=== PATIENT | male | born 1975 | race Caucasian/White ===

== ENCOUNTER 2018-11-29 12:12 | Emergency (ER) | payer OTHER ==
[2018-11-29 12:31] VITALS: BP 130/88; PULSE 98; RESP 18; TEMP 98.5
[2018-11-29] MEDS ORDERED: PENICILLIN VK 500MG STARTER 4 TAB BTL PO STA (12:52)
--- NOTE | 2018-11-29 12:52 | ED ---
General Adult HPI - General Chief complaint: Dental/Oral Stated complaint: Tooth pain Time Seen by Provider: 11/29/18 12:38 Source: patient, RN notes reviewed Mode of arrival: ambulatory Limitations: no limitations - History of Present Illness Initial comments: 43-year-old male presents to the emergency department for chief complaint of dental pain. Patient has had pain for the past few days on the left lower mouth. States it is somewhat swollen. Denies any difficulty opening his mouth or swallowing. States &r cold causes pain. States he fractured this tooth about a year ago and believes that is now infected. Patient does not have a dentist.Patient has no other complaints at this time including shortness of breath, chest pain, abdominal pain, nausea or vomiting, headache, or visual changes. - Related Data Home Medications Medication Instructions Recorded Confirmed ALPRAZolam 1 mg PO TID PRN 06/06/15 06/06/15 HYDROcodone/APAP 10-325MG [[place] 1 tab PO DAILY PRN 06/06/15 06/06/15 10-325] Previous Rx's Medication Instructions Recorded Tobramycin 0.3% Ophth Oint [Tobrex 1 applic BOTH EYES TID #1 bottle 06/06/15 0.3% Ophth Oint] Penicillin V Potassium [Pen Vee K] 500 mg PO Q6H 10 Days #40 tablet 11/29/18 Allergies Allergy/AdvReac Type Severity Reaction Status Date / Time No Known Allergies Allergy Verified 06/06/15 21:52 Review of Systems ROS Statement: Those systems with pertinent positive or pertinent negative responses have been documented in the HPI. ROS Other: All systems not noted in ROS Statement are negative. Past Medical History Past Medical History: No Reported History History of Any Multi-Drug Resistant Organisms: None Reported Past Surgical History: Orthopedic Surgery Past Psychological History: No Psychological Hx Reported Smoking Status: Never smoker Past Alcohol Use History: Occasional Past Drug Use History: None Reported General Exam Limitations: no limitations General appearance: alert, in no apparent distress Head exam: Present: atraumatic, normocephalic, normal inspection Eye exam: Present: normal appearance, PERRL, EOMI. Absent: scleral icterus, conjunctival injection, periorbital swelling ENT exam: Present: normal exam, mucous membranes moist. Absent: normal oropharynx (Tooth 19 is cracked and tender to palpation with tongue blade. No abscess noted.) Neck exam: Present: normal inspection, full ROM. Absent: tenderness, meningismus, lymphadenopathy Respiratory exam: Present: normal lung sounds bilaterally. Absent: respiratory distress, wheezes, rales, rhonchi, stridor Cardiovascular Exam: Present: regular rate, normal rhythm, normal heart sounds. Absent: systolic murmur, diastolic murmur, rubs, gallop, clicks Neurological exam: Present: alert, oriented X3, CN II-XII intact Psychiatric exam: Present: normal affect, normal mood Course Vital Signs 11/29/18 12:28 Temperature 98.5 F Pulse Rate 98 Respiratory 18 Rate Blood Pressure 130/88 O2 Sat by Pulse 99 Oximetry Medical Decision Making - Medical Decision Making 43-year-old male presents to the emergency department for a chief complaint of dental pain times a few days. Patient cracked his tooth about a year ago and believes it is now infected. On exam there is minimal edema noted of the left lower jaw. No pain with opening the jaw. Tenderness noted to tooth 19 which appears cracked. No dental abscess with palpation or visualization of the gumline. Patient will be given penicillin. Recommended follow-up with dentist. Recommended returning if he has any worsening symptoms. Disposition Clinical Impression: Toothache Disposition: HOME SELF-CARE Condition: Good Instructions (If sedation given, give patient instructions): Dental Caries (ED) Additional Instructions: Please follow up with primary care in 1-2 days. Follow-up with dentist as well. Take antibiotics as directed. Please return to the emergency department if you have any worsening symptoms. [facility] Address: [address] [place] [address] Phone: Prescriptions: Penicillin V Potassium [Pen Vee K] 500 mg PO Q6H 10 Days #40 tablet Is patient prescribed a controlled substance at d/c from ED?: No Referrals: Renee Patel MD [STAFF PHYSICIAN] - 1-2 days Time of Disposition: 12:51
== END 2018-11-29 13:26 | disposition home or self-care (01) ==
LOC: EC 12:12
DX: K08.89 Other specified disorders of teeth and supporting structures (principal); K03.81 Cracked tooth
CPT/HCPCS: 99282

== ENCOUNTER 2019-11-08 14:40 | Emergency (ER) | payer OTHER ==
[2019-11-08 14:48] VITALS: BP 153/88; PULSE 95; RESP 18; TEMP 98.2
[2019-11-08] MEDS ORDERED: LIDOCAINE 5% PATCH TOPICAL STA (15:15)
[2019-11-08] MEDS ORDERED: CYCLOBENZAPRINE 10 MG TAB PO STA (15:18)
--- NOTE | 2019-11-08 15:19 | ED ---
Back Pain HPI - General Chief Complaint: Back Pain/Injury Stated Complaint: Back Injury Time Seen by Provider: 11/08/19 14:49 Source: patient Limitations: no limitations - History of Present Illness Initial Comments: Patient is a 44-year-old male presenting to the emergency department with a chief complaint of back pain. Patient reports yesterday he was cutting down trees and was calling them under his right arm Near the right hip/back region. Patient reports left-sided developed pain in the right lower back region. States he woke up this morning and noticed pain that is radiating from the right hip down to the popliteal region. Does report history of disc herniation. Denies any direct trauma to the back. Forsaken [id number] analgesics with some improvement in symptoms. States the pain is exacerbated with ambulation and weightbearing. Denies any saddle anesthesia, urinary or bowel incontinence. also reports a tingling sensation in the right inner thigh. - Related Data Home Medications Medication Instructions Recorded Confirmed ALPRAZolam 1 mg PO TID PRN 06/06/15 06/06/15 HYDROcodone/APAP 10-325MG [[place] 1 tab PO DAILY PRN 06/06/15 06/06/15 10-325] Previous Rx's Medication Instructions Recorded Tobramycin 0.3% Ophth Oint [Tobrex 1 applic BOTH EYES TID #1 bottle 06/06/15 0.3% Ophth Oint] Penicillin V Potassium [Pen Vee K] 500 mg PO Q6H 10 Days #40 tablet 11/29/18 Cyclobenzaprine [Flexeril] 10 mg PO TID PRN #15 tab 11/08/19 Allergies Allergy/AdvReac Type Severity Reaction Status Date / Time No Known Allergies Allergy Verified 11/08/19 14:43 Review of Systems ROS Statement: Those systems with pertinent positive or pertinent negative responses have been documented in the HPI. ROS Other: All systems not noted in ROS Statement are negative. Past Medical History Past Medical History: No Reported History History of Any Multi-Drug Resistant Organisms: None Reported Past Surgical History: Orthopedic Surgery Additional Past Surgical History / Comment(s): R leg Past Psychological History: No Psychological Hx Reported Smoking Status: Never smoker Past Alcohol Use History: Occasional Past Drug Use History: None Reported General Exam Limitations: no limitations General appearance: alert, in no apparent distress Head exam: Present: atraumatic, normocephalic, normal inspection Eye exam: Present: normal appearance, PERRL, EOMI Pupils: Present: normal accommodation ENT exam: Present: normal exam, normal oropharynx, mucous membranes moist. Absent: TM's normal bilaterally Neck exam: Present: normal inspection, full ROM. Absent: tenderness Respiratory exam: Present: normal lung sounds bilaterally. Absent: respiratory distress, wheezes Cardiovascular Exam: Present: regular rate, normal rhythm, normal heart sounds Extremities exam: Present: normal inspection, full ROM (Full range of motion of the right hip.), normal capillary refill, other (+2 ulnar and radial pulses bilaterally. +2 dorsalis pedis and posterior tibialis bilaterally. Patient has sensation in the medial aspect of the right thigh, as well as throughout the whole right lower extremity). Absent: tenderness (No tenderness along the region of the right hip. No tenderness along the right thigh.), pedal edema, calf tenderness Back exam: Present: normal inspection, full ROM, tenderness, paraspinal tenderness (Focal tenderness in the right paraspinal region.). Absent: CVA tenderness (R), CVA tenderness (L), muscle spasm, vertebral tenderness Neurological exam: Present: alert, oriented X3 Psychiatric exam: Present: normal affect, normal mood Skin exam: Present: warm, dry, intact, normal color Course Vital Signs 11/08/19 14:43 Temperature 98.2 F Pulse Rate 95 Respiratory 18 Rate Blood Pressure 153/88 O2 Sat by Pulse 98 Oximetry Medical Decision Making - Medical Decision Making Patient is a 44-year-old male presenting to the emergency department with a chief complaint of back/hip pain. On exam patient has focal tenderness in the right paraspinal region with no signs of erythema or ecchymosis. She did complain of some paresthesias in the medial aspect of the right side. Physical examination reveals full sensation in the medial aspect of the right thigh and throughout the whole right lower extremity. No cauda equina. Patient was given a Lidoderm patch, Flexeril and Tylenol 3 starter pack. Advised not to drive or operate heavy machinery when taking medication. He was advised to follow-up with patient centered care specialist . He was advised to alternate between Tylenol and Motrin for pain control. Strict return parameters were thoroughly discussed the patient is understanding and agreeable. Case discussed with physician. Disposition Clinical Impression: Mechanical back pain, Strain of lumbar region Disposition: HOME SELF-CARE Condition: Good Instructions (If sedation given, give patient instructions): Acute Low Back Pain (ED) Additional Instructions: Take prescribed medication as directed. Do not drive or operate heavy machinery when taking medication. Follow-up with patient centered care specialist. Prescriptions: Cyclobenzaprine [Flexeril] 10 mg PO TID PRN #15 tab PRN Reason: Muscle Spasm Is patient prescribed a controlled substance at d/c from ED?: No Referrals: None,Stated [Primary Care Provider] - 1-2 days Remy Mcknight MD [Medical Doctor] - 1-2 days Time of Disposition: 15:37
[2019-11-08] MEDS: KETOROLAC 30 MG/ML 1 ML VIAL IM STA ×2 (15:30→15:35)
[2019-11-08] MEDS ORDERED: ACET/COD 300 MG/30 MG STARTER PACK 6 TAB BTL PO STA (15:34)
== END 2019-11-08 15:44 | disposition home or self-care (01) ==
LOC: EC 14:40
DX: S39.012A Strain of muscle, fascia and tendon of lower back, initial encounter (principal); R20.2 Paresthesia of skin; X50.0XXA Overexertion from strenuous movement or load, initial encounter; Y93.H2 Activity, gardening and landscaping
CPT/HCPCS: 99283

== ENCOUNTER → 2021-07-12 | Outpatient (CLI) | payer OTHER ==
[2021-07-12 14:54] LABS: Basophils # (A) 0.04 X 10*3/uL (0.00-0.10); Basophils % (A) 0.7 %; Eosinophils % (A) 1.8 %; HCT 40.1 % (39.6-50.0); HGB 12.2 g/dL (13.0-17.0); Immature Grans, Automated 0.5 %; Lymphocytes # (A) 1.65 X 10*3/uL (0.90-5.00); Lymphocytes % (A) 29.5 %; MCH 25.5 pg (27.0-32.0); MCHC 30.4 g/dL (32.0-37.0); MCV 83.9 fL (80.0-97.0); Mean Platelet Volume 11.1 fL (9.5-12.2); Monocytes # (A) 0.45 X 10*3/uL (0.20-1.00); NRBC Per 100 WBC 0 /100 WBCS (0.0-0.0); Neutrophils # (A) 3.33 X 10*3/uL (1.80-7.70); Neutrophils % (A) 59.5 %; Platelet Count 234 X 10*3/uL (140-440); RBC 4.78 X 10*6/uL (4.40-5.60); RDW 14.6 % (11.5-14.5)
[2021-07-12 15:11] LABS: % Iron Saturation 20.09 (15.00-50.00); ALT 21 U/L (10-49); AST 19 U/L (14-35); African American GFR (CKD) 128.7 (60.0-200.0); Albumin 4.4 g/dL (3.8-4.9); Albumin/Globulin Ratio 1.67 (1.60-3.17); Alkaline Phosphatase 79 U/L (41-126); BUN/Creat Ratio 16.89 Ratio (12.00-20.00); Bilirubin, Conjugated <0.20 mg/dL (0.20-0.40); Blood Urea Nitrogen 12.6 mg/dL (9.0-27.0); Calcium 9.4 mg/dL (8.7-10.3); Carbon Dioxide 25.9 mmol/L (20.0-27.5); Chloride 104 mmol/L (96-109); Globulin 2.6 g/dL (1.6-3.3); Glucose 95 mg/dL (70-110); Iron 68 ug/dL (65-175); Potassium 4.1 mmol/L (3.5-5.5); Sodium 140 mmol/L (135-145); Total Iron Binding Capacity 336 ug/dL (228-460)
[2021-07-12 21:39] LABS: Ceruloplasmin 22.6 mg/dL (20.0-60.0)
[2021-07-13 05:17] LABS: EBV - VCA IgM <10.0 U/mL (<36.0)
== END | disposition home or self-care (01) ==
LOC: LABWHC1 08:38
PROVIDERS: ATTEND Internal Medicine
DX: R74.01 Elevation of levels of liver transaminase levels (principal); R63.4 Abnormal weight loss
CPT/HCPCS: 36415; 80053; 82103; 82104; 82390; 82525; 83516; 83540; 83550; 85025; 86038; 86645; 86665

== ENCOUNTER → 2021-07-13 | Outpatient (CLI) | payer OTHER ==
--- NOTE | 2021-07-13 10:40 | US ---
EXAMINATION TYPE: US liver DATE OF EXAM: 07/13/2021 COMPARISON: NONE CLINICAL HISTORY: R74.01 ELEVATION OF LEVELS OF LIVER TRANSAMINASE L. Abnormal labs. EXAM MEASUREMENTS: Liver Length: 17.3 cm Gallbladder Wall: 0.1 cm CBD: 0.3 cm Right Kidney: 11.4 x 4.9 x 4.8 cm Pancreas: Tail obscured by overlying bowel gas Liver: wnl Gallbladder: wnl, fold seen Evidence for sonographic Perea's sign: neg CBD: wnl Right Kidney: medial anechoic lesion at hilum = 1.4 x 0.7 cm IMPRESSION: Cystic lesion medial aspect right kidney
== END | disposition home or self-care (01) ==
LOC: RADUSWWP 10:03
PROVIDERS: ATTEND Internal Medicine
DX: N28.1 Cyst of kidney, acquired (principal)
CPT/HCPCS: 76705